=== PATIENT | female | born 2000 | race Two or more races ===

== ENCOUNTER 2018-02-22 19:21 | Emergency (ER) | payer BC ==
[~2018-02-22] VITALS: Ht 157.5 cm; Wt 65.0 kg
[2018-02-22 19:23] VITALS: BP 126/84
[2018-02-22] MEDS ORDERED: ACETAMINOPHEN 500 MG TABLET PO ONE (20:00)
[2018-02-22] MEDS ORDERED: ACETAMINOPHEN 500 MG TABLET ONE (20:07)
== END 2018-02-22 20:59 | disposition home or self-care (01) ==
LOC: ED 20:36
DX: S16.1XXA Strain of muscle, fascia and tendon at neck level, initial encounter (principal); S80.12XA Contusion of left lower leg, initial encounter; S80.11XA Contusion of right lower leg, initial encounter; S00.93XA Contusion of unspecified part of head, initial encounter; W10.9XXA Fall (on) (from) unspecified stairs and steps, initial encounter; Y93.89 Activity, other specified; Y99.8 Other external cause status; Y92.009 Unspecified place in unspecified non-institutional (private) residence as the place of occurrence of the external cause
CPT/HCPCS: 72020; 72050; 99284